=== PATIENT | female | born 1945 | race American Indian/Alaskan Native ===

== ENCOUNTER 2020-12-05 08:41 | Emergency (ER) | payer MEDICARE ==
--- NOTE | 2020-12-05 10:54 | Emergency Department Report ---
ED Dizziness HPI - General Chief Complaint: Dizziness Stated Complaint: WEAKNESS Time Seen by Provider: 12/05/20 10:17 Source: EMS Mode of arrival: Stretcher Limitations: No Limitations - History of Present Illness Initial Comments: 75-year-old female, history of hypertension, gallstones, presents to ED with dizziness. Patient states when she woke up this morning she felt fine. Patient works at a nearby high school. Patient states she drove to work she was feeling okay. However, when she got out of the car and started walking towards the school, she began feeling dizzy and lightheaded. Patient states this continued when she got inside school. States she thought she was going to pass out as she was walking up the stairs. Patient denies any headache, chest pain, shortness of breath, vomiting, diarrhea, abdominal pain. Patient states she had half a cup of coffee and a muffin for breakfast which is her usual intake for breakfast. Patient states she no longer feels lightheaded, she just feels really weak all over. MD Complaint: dizziness, lightheadedness -: This morning Timing: waxing/waning Description: lightheadedness, near-syncope History of Same: No Severity: moderate Improves With: remaining still Worsens With: nothing Associated Symptoms: weakness. denies: chest pain, confusion, cough, fever/chills, shortness of breath, syncope - Related Data Previous Rx's Medication Instructions Recorded Last Taken Type Ondansetron [Zofran Odt] 4 mg PO Q8HR PRN #20 tab.rapdis 12/05/20 Unknown Rx Allergies Allergy/AdvReac Type Severity Reaction Status Date / Time No Known Allergies Allergy Unverified 12/05/20 09:05 ED Review of Systems ROS: Stated complaint: WEAKNESS Other details as noted in HPI Comment: All other systems reviewed and negative Constitutional: denies: chills, fever Respiratory: denies: cough, shortness of breath Cardiovascular: denies: chest pain Gastrointestinal: nausea. denies: abdominal pain, vomiting, diarrhea Neurological: denies: headache, weakness, numbness ED Past Medical Hx - Past Medical History Previous Medical History?: Yes Hx Hypertension: Yes - Surgical History Past Surgical History?: Yes Additional Surgical History: hysterectomy - Social History Smoking Status: Never Smoker - Medications Home Medications: Home Medications Medication Instructions Recorded Confirmed Last Taken Type Ondansetron [Zofran Odt] 4 mg PO Q8HR PRN #20 tab.rapdis 12/05/20 Unknown Rx ED Physical Exam - General Limitations: No Limitations General appearance: alert, in no apparent distress - Head Head exam: Present: atraumatic, normocephalic - Eye Eye exam: Present: normal appearance, EOMI - ENT ENT exam: Present: mucous membranes moist - Neck Neck exam: Present: normal inspection - Respiratory Respiratory exam: Present: normal lung sounds bilaterally. Absent: respiratory distress - Cardiovascular Cardiovascular Exam: Present: regular rate, normal rhythm - GI/Abdominal GI/Abdominal exam: Present: soft. Absent: distended, tenderness - Extremities Exam Extremities exam: Present: normal inspection - Neurological Exam Neurological exam: Present: alert, oriented X3, CN II-XII intact, normal gait. Absent: motor sensory deficit - Psychiatric Psychiatric exam: Present: normal affect, normal mood - Skin Skin exam: Present: warm, dry, intact, normal color ED Course Vital Signs 12/05/20 12/05/20 12/05/20 08:46 09:00 09:09 Temperature 97.9 F Pulse Rate 72 75 Respiratory 16 16 Rate Blood Pressure 145/69 O2 Sat by Pulse 98 Oximetry 12/05/20 12/05/20 12/05/20 09:16 09:30 09:54 Temperature Pulse Rate 68 67 Respiratory 13 16 Rate Blood Pressure 145/69 126/58 O2 Sat by Pulse 98 99 95 Oximetry 12/05/20 12/05/20 12/05/20 10:00 10:30 11:30 Temperature Pulse Rate 62 69 73 Respiratory 13 13 16 Rate Blood Pressure 133/58 131/55 131/55 O2 Sat by Pulse 100 99 97 Oximetry 12/05/20 12/05/20 12/05/20 12:00 12:30 13:00 Temperature Pulse Rate 68 70 70 Respiratory 12 11 L 15 Rate Blood Pressure 131/55 129/55 124/97 O2 Sat by Pulse 100 99 98 Oximetry 12/05/20 12/05/20 12/05/20 13:30 14:00 14:30 Temperature Pulse Rate 66 67 67 Respiratory 16 15 12 Rate Blood Pressure 124/97 139/65 153/78 O2 Sat by Pulse 97 97 98 Oximetry 12/05/20 12/05/20 12/05/20 15:00 15:30 16:00 Temperature Pulse Rate 67 65 65 Respiratory 12 14 13 Rate Blood Pressure 148/68 137/71 122/62 O2 Sat by Pulse 98 99 97 Oximetry - Reevaluation(s) Reevaluation #1: 12/05/20 16:13 Patient has eaten a meal tray. She has been ambulated by RN. Patient ambulated without difficulty. Gait is normal. Dizziness improved. Patient states she believes her symptoms may have been related to anxiety. States she has been under lots of stress because her is sick at home. Also is taking care of her 90-year-old mother. ED Medical Decision Making - Lab Data Result diagrams: 12/05/20 12:08 12/05/20 12:08 - EKG Data -: EKG Interpreted by Me EKG shows normal: sinus rhythm, axis, QRS complexes, ST-T waves Rate: normal - EKG Data Interpretation: no acute changes, other (prolonged NC) - Radiology Data Radiology results: report reviewed, image reviewed - Medical Decision Making 75-year-old female presents to ED with dizziness after getting out of her car to walk into work. Patient has no neuro deficits on exam. Vital signs are normal. Patient is orthostatic with standing. IV fluid bolus given. CT head is normal. Chest x-ray is normal. EKG is unremarkable with no ST changes. Troponin is negative x2. Patient has also been given a food tray while here in the ED. Patient is eating and feels much better. She has ambulated without difficulty. States her dizziness is much improved. Patient feels comfortable with discharge at this time. Advised to follow-up with her PCP. Return precautions given. - Differential Diagnosis Dehydration, intracranial abnormality, arrhythmia, ACS Critical care attestation.: If time is entered above; I have spent that time in minutes in the direct care of this critically ill patient, excluding procedure time. ED Disposition Clinical Impression: Near syncope, Orthostatic dizziness Disposition: DC-01 TO HOME OR SELFCARE Is pt being admited?: No Condition: Stable Instructions: Near-Syncope, [id number], Dizziness, [id number] Prescriptions: Ondansetron [Zofran Odt] 4 mg PO Q8HR PRN #20 tab.rapdis PRN Reason: Vomiting Referrals: PRIMARY CARE, [Primary Care Provider] - 3-5 Days [facility] [Provider Group] - 3-5 Days Time of Disposition: 16:15
--- NOTE | 2020-12-05 11:11 | XRay Report ---
CHEST 1 VIEW 12/05/2020 10:45 AM INDICATION / CLINICAL INFORMATION: weakness, DIZZY,HYPERTENSION. COMPARISON: None available. FINDINGS: SUPPORT DEVICES: None. HEART / MEDIASTINUM: No significant abnormality. LUNGS / PLEURA: No significant pulmonary or pleural abnormality. No pneumothorax. ADDITIONAL FINDINGS: No significant additional findings. IMPRESSION: 1. No acute findings. Signer Name: Duarte Martínez MD Signed: 12/05/2020 11:07 AM Workstation Name: [id number]
[2020-12-05] MEDS ORDERED: ONDANSETRON 4 MG/2 ML INJ IV ONE (11:18)
--- NOTE | 2020-12-05 11:25 | Cat Scan Report ---
CT HEAD WITHOUT CONTRAST INDICATION / CLINICAL INFORMATION: dizziness. TECHNIQUE: All CT scans at this location are performed using CT dose reduction for ALARA by means of automated e xposure control. COMPARISON: None available. FINDINGS: No acute intracranial hemorrhage. Ventricles are normal in size without midline shift or mass effect. No extra-axial fluid collection is seen. No acute bone findings are seen. Visualized orbits appear n ormal. ADDITIONAL FINDINGS: None. IMPRESSION: 1. No acute intracranial abnormality. Signer Name: Nicolas Araujo MD Signed: 12/05/2020 11:20 AM Workstation Name: [id number]
[2020-12-05] MEDS ORDERED: SODIUM CHLORIDE 0.9% 1000 ML 1,000 ML IV ONE (11:55)
[2020-12-05 12:19] LABS: Basophils # (Auto) 0.1 K/mm3 (0.0-0.1); Basophils % (Auto) 0.8 % (0.0-1.8); Eosinophils % (Auto) 0.3 % (0.0-4.3); Hematocrit 46.6 % (30.3-42.9); Hemoglobin 15.4 gm/dl (10.1-14.3); Lymphocytes # (Auto) 0.9 K/mm3 (1.2-5.4); Lymphocytes % (Auto) 12.8 % (13.4-35.0); Mean Corpuscular HGB Conc 33 % (30-34); Mean Corpuscular Volume 86 fl (79-97); Monocytes # (Auto) 0.2 K/mm3 (0.0-0.8); Monocytes % (Auto) 2.4 % (0.0-7.3); Platelet Count 210 K/mm3 (140-440); Red Blood Count 5.45 M/mm3 (3.65-5.03); Red Cell Distribution Width 14.9 % (13.2-15.2)
[2020-12-05 12:32] LABS: Alanine Aminotransferase 16 units/L (7-56); Albumin 3.9 g/dL (3.9-5); Blood Urea Nitrogen 18 mg/dL (7-17); Calcium 9.1 mg/dL (8.4-10.2); Hemolysis Index 9
[2020-12-05 12:35] LABS: INR 0.93 (0.87-1.13); Partial Thromboplastin Time 21.3 Sec. (24.2-36.6)
[2020-12-05 12:42] LABS: BUN/Creatinine Ratio 26; Bilirubin,Direct < 0.2 mg/dL (0-0.2)
[2020-12-05 14:10] LABS: Bilirubin,Urine NEG (Negative); Blood,Urine NEG (Negative); Color,Urine Yellow (Yellow); Urobilinogen,Urine < 2.0 mg/dL (<2.0)
[2020-12-05 16:33] VITALS: BP 122/62
--- NOTE | 2020-12-06 17:42 | Electrocardiograph Report ---
[facility] Test Date: 2020-12-05 Test Time: 09:22:25 Pat Name: MARCIO CISNEROS Department: Room: Gender: F Air Director: PRINCESS : 1945 Requested By: DEMETRI BROWN Order Number: [id number] Reading MD: Dinesh Clemons Measurements Intervals [place] Rate: 71 P: 51 NV: 215 QRS: 26 QRSD: 86 T: 36 QT: 400 QTc: 434 Interpretive Statements Sinus rhythm Borderline prolonged NV interval No previous ECG available for comparison Electronically Signed On 12-06-2020 17:41:57 EDT by Dinesh Clemons
== END 2020-12-05 16:59 | disposition home or self-care (01) ==
LOC: ED 08:41
DX: R55 Syncope and collapse (principal); R42 Dizziness and giddiness; I10 Essential (primary) hypertension; Z90.710 Acquired absence of both cervix and uterus; Z79.899 Other long term (current) drug therapy
CPT/HCPCS: 36415; 70450; 71045; 80048; 80076; 81001; 84484; 85025; 85610; 85730; 93005; 96361; 96374; 99285; J2405; J7030